=== PATIENT | male | born 1980 | race Caucasian/White ===

== ENCOUNTER 2017-10-05 20:15 | Emergency (ER) | payer SELFPAY ==
[~2017-10-05] VITALS: Ht 172.7 cm; Wt 85.5 kg
[2017-10-05 20:18] VITALS: BP 144/88
== END 2017-10-06 00:53 | disposition left against medical advice (07) ==
LOC: EMS 20:17
DX: T16.1XXA Foreign body in right ear, initial encounter (principal); X58.XXXA Exposure to other specified factors, initial encounter; Y93.89 Activity, other specified; Y92.89 Other specified places as the place of occurrence of the external cause; Y99.8 Other external cause status; Z53.21 Procedure and treatment not carried out due to patient leaving prior to being seen by health care provider

== ENCOUNTER 2018-09-24 15:43 | Emergency (ER) | payer SELFPAY ==
[~2018-09-24] VITALS: Ht 177.8 cm; Wt 100.0 kg
[2018-09-24 15:46] VITALS: BP 146/98
[2018-09-24] MEDS ORDERED: LIDOCAINE 1% 10 ML VIAL INJ ONE (16:30)
[2018-09-24] MEDS ORDERED: PERTUSS(ACELL),DIPH,TET VAC/PF 0.5 ML VIAL IM ONE (16:30)
[2018-09-24] MEDS ORDERED: POVIDONE-IODINE 10% 15 ML SOLUTION UD TP ONE (16:30)
[2018-09-24] MEDS ORDERED: BACITRACIN 0.9 GM PACKET OINTMENT TP ONE (16:30)
[2018-09-24] MEDS ORDERED: ACETAMINOPHEN 325 MG TABLET PO ONE (16:30)
== END 2018-09-24 17:35 | disposition home or self-care (01) ==
LOC: EMS 15:44
DX: S61.211A Laceration without foreign body of left index finger without damage to nail, initial encounter (principal); W45.8XXA Other foreign body or object entering through skin, initial encounter; Y93.89 Activity, other specified; Y92.89 Other specified places as the place of occurrence of the external cause; Y99.8 Other external cause status
CPT/HCPCS: 12001; 90471; 90715; 99283; J3490